=== PATIENT | female | born 1965 | race Caucasian/White ===

== ENCOUNTER 2019-09-10 15:10 | Inpatient (IN) ==
[2019-09-10 16:06] LABS: Basophils # 0.1 10*3/uL (0.0-0.2); Basophils % 0.8 % (0.0-0.8); Eosinophils # 0.3 10*3/uL (0.0-0.87); Eosinophils % 2.9 % (0.00-10.9); Hematocrit 36.2 VOL% (35.7-47.0); Hemoglobin 11.5 GM/DL (12.0-16.0); Immature Granulocytes % 0.2 %; Immature Granulocytes Absolute 0.02 #; Lymphocytes % 33.9 % (21.3-54.2); Mean Corpuscular HGB Conc 31.8 GM/DL (32-36); Mean Corpuscular Volume 94.3 FL (87-102); Mean Platelet Volume 9.9 FL (9.6-12.0); Monocytes % 8.3 % (1.7-12.7); Neutrophils % 53.9 % (38.7-73.9); Platelet Count 361 T/CUMM (130-400); Red Blood Count 3.84 MC/CUMM (3.8-5.5); Red Cell Distribution Width 15.1 % (9.3-17.3); White Blood Count 8.9 T/CUMM (4-12)
[2019-09-10 16:13] LABS: Albumin 3.9 G/DL (3.4-5.0); Bilirubin,Total 0.5 MG/DL (0.2-1.0); Calcium 9.3 MG/DL (8.5-10.1); Total Protein 8.6 G/DL (6.4-8.3)
[2019-09-10] MEDS ORDERED: SODIUM CHLORIDE 0.9% 1,000 ML IV STA (17:05)
[2019-09-10 17:19] LABS: PT Patient Result 11.1 SECS (9.6-12.2); Partial Thromboplastin Time 23.8 SECS (20.8-36.0)
[2019-09-10 17:23] LABS: Amylase 20 U/L (25-115); Troponin I < 0.015 NG/ML (0.00-0.045)
[2019-09-10 18:21] LABS: Apearance,Urine CLEAR (Clear); Barbiturates Screen,Urine Negative (Negative); Benzodiazepines Screen,Urine Negative (Negative); Bilirubin,Urine Negative (Negative); Blood, Urine Negative (Negative); Cannabinoid Screen,Urine Negative (Negative); Glucose,Urine (UA) Negative (Negative); Ketones,Urine Negative (Negative); Nitrite,Urine Negative (Negative); Opiate Screen,Urine Negative (Negative); Phencyclidine Screen,Urine Negative (Negative); Protein,Urine Negative; RBC,Urine 1 /HPF (0-4); Squamous Epithelial Cell,Urine Occasional /HPF (0-10); Urine Color Straw (Yellow); Urine Specific Gravity 1.017 (1.001-1.035); Urine Urobilinogen < 2.0 EU/DL (0.2-1.0); WBC,Urine 1 /HPF (0-6)
[2019-09-10] MEDS ORDERED: MORPHINE 4 MG/1 ML VIAL ONE (18:32)
[2019-09-10] MEDS ORDERED: ONDANSETRON 4 MG/2 ML VIAL ONE ×2 (18:32→18:39)
[2019-09-10] MEDS ORDERED: HYDROmorphone 2 MG/1 ML VIAL IV STA (18:36)
[2019-09-10] MEDS ORDERED: ONDANSETRON 4 MG/2 ML VIAL IV STA (18:37)
[2019-09-10] MEDS ORDERED: MAGNESIUM SULF RIDER 2 GM in PREMIX 1 EACH IV PRN (19:34)
[2019-09-10] MEDS ORDERED: MAGNESIUM SULF RIDER 4 GM in PREMIX 1 EACH IV PRN (19:34)
[2019-09-10] MEDS ORDERED: LABETALOL 20 MG/4 ML SYRINGE IV PRN (19:34)
[2019-09-10 20:16] LABS: Risk Ratio 4.33
[2019-09-10] MEDS: ROSUVASTATIN 20 MG TABLET PO SCH (22:47)
[2019-09-10] MEDS: ENOXAPARIN 100 MG/ML SYRINGE SUBCUT SCH (22:47)
[2019-09-10] MEDS: SODIUM CHLORIDE 0.9% 1,000 ML IV SCH (22:48)
[2019-09-11] MEDS: ONDANSETRON 4 MG/2 ML VIAL IV PRN ×2 (01:04→10:15)
[2019-09-11 02:02] LABS: Basophils # 0.1 10*3/uL (0.0-0.2); Basophils % 0.8 % (0.0-0.8); Eosinophils # 0.4 10*3/uL (0.0-0.87); Eosinophils % 4.2 % (0.00-10.9); Hematocrit 32.3 VOL% (35.7-47.0); Hemoglobin 9.9 GM/DL (12.0-16.0); Immature Granulocytes % 0.5 %; Immature Granulocytes Absolute 0.04 #; Lymphocytes % 34.6 % (21.3-54.2); Mean Corpuscular HGB Conc 30.7 GM/DL (32-36); Mean Corpuscular Volume 96.1 FL (87-102); Monocytes % 12.1 % (1.7-12.7); Neutrophils % 47.8 % (38.7-73.9); Platelet Count 312 T/CUMM (130-400); Red Blood Count 3.36 MC/CUMM (3.8-5.5); Red Cell Distribution Width 15.5 % (9.3-17.3); White Blood Count 8.8 T/CUMM (4-12)
[2019-09-11 02:11] LABS: INR 1.1; PT Patient Result 11.7 SECS (9.6-12.2); Partial Thromboplastin Time 34.9 SECS (20.8-36.0)
[2019-09-11 02:57] LABS: Calcium 8.2 MG/DL (8.5-10.1); Osmolality,Calculated 279.4 MOS/KG (273-304)
[2019-09-11] MEDS: POTASSIUM CHLORIDE 20 MEQ TABLET PO PRN ×4 (05:44→11:53)
[2019-09-11] MEDS ORDERED: INFLUENZA VIRUS VACCINE 0.5 ML SYRINGE IM ONE (07:35)
[2019-09-11] MEDS: HYDROmorphone 2 MG/1 ML VIAL IV PRN ×3 (08:04→21:13)
[2019-09-11] MEDS ORDERED: POTASSIUM CHLORIDE 20 MEQ/15 ML UDCUP PO ONE (08:55)
[2019-09-11] MEDS ORDERED: MAGNESIUM SULF RIDER 2 GM in PREMIX 1 EACH IV ONE (08:55)
[2019-09-11] MEDS: SODIUM CHLORIDE 0.9% 1,000 ML IV SCH ×2 (09:15→14:25)
[2019-09-11] MEDS: ASPIRIN 325 MG TABLET PO SCH (09:17)
[2019-09-11] MEDS: PANTOPRAZOLE 40 MG TABLET PO SCH (09:18)
[2019-09-11] MEDS: APIXABAN 5 MG TABLET PO SCH ×2 (09:29→21:13)
[2019-09-11] MEDS: ENOXAPARIN 100 MG/ML SYRINGE SUBCUT SCH (10:01)
[2019-09-11] MEDS: TOPIRAMATE 200 MG TABLET PO SCH (21:12)
[2019-09-11] MEDS: GABAPENTIN 400 MG CAPSULE PO SCH (21:12)
[2019-09-11] MEDS: QUEtiapine 25 MG TABLET PO SCH (21:12)
[2019-09-11] MEDS: ROSUVASTATIN 20 MG TABLET PO SCH (21:12)
[2019-09-11] MEDS: rOPINIRole 1 MG TABLET PO SCH (21:13)
[2019-09-12] MEDS ORDERED: NALOXONE 0.4 MG/ML VIAL ONE (01:03)
[2019-09-12] MEDS ORDERED: NALOXONE 0.4 MG/ML VIAL IV PRN (01:10)
[2019-09-12 02:22] LABS: Calcium 8.1 MG/DL (8.5-10.1); Osmolality,Calculated 284.4 MOS/KG (273-304)
[2019-09-12 03:21] LABS: Apearance,Urine CLEAR (Clear); Bacteria,Urine Occasional /HPF (Few); Bilirubin,Urine Negative (Negative); Blood, Urine Negative (Negative); Glucose,Urine (UA) 150 mg/dL (Negative); Hyaline Casts,Urine 6 /LPF (0-3); Ketones,Urine Negative (Negative); Mucus,Urine Occasional /LPF (Occasional); Nitrite,Urine Negative (Negative); Protein,Urine Negative; RBC,Urine 4 /HPF (0-4); Squamous Epithelial Cell,Urine Occasional /HPF (0-10); Urine Color Yellow (Yellow); Urine Specific Gravity 1.013 (1.001-1.035); WBC,Urine 1 /HPF (0-6)
[2019-09-12 03:22] LABS: Barbiturates Screen,Urine Negative (Negative); Benzodiazepines Screen,Urine Negative (Negative); Cannabinoid Screen,Urine Negative (Negative); Opiate Screen,Urine Positive (Negative); Phencyclidine Screen,Urine Negative (Negative)
[2019-09-12] MEDS: LEVOTHYROXINE 75 MCG TABLET PO SCH (06:00)
[2019-09-12] MEDS ORDERED: LEVOTHYROXINE 25 MCG TABLET PO SCH (06:30)
[2019-09-12] MEDS: ONDANSETRON 4 MG/2 ML VIAL IV PRN ×3 (07:52→21:15)
[2019-09-12] MEDS: POTASSIUM CHLORIDE 10 MEQ TABLET PO SCH (08:45)
[2019-09-12] MEDS: ESCITALOPRAM 10 MG TABLET PO SCH (08:45)
[2019-09-12] MEDS: ASPIRIN 325 MG TABLET PO SCH (08:45)
[2019-09-12] MEDS: CHOLECALCIFEROL 1,000 UNIT TABLET PO SCH (08:45)
[2019-09-12] MEDS: GABAPENTIN 400 MG CAPSULE PO SCH ×3 (08:46→21:15)
[2019-09-12] MEDS: APIXABAN 5 MG TABLET PO SCH ×2 (08:46→21:15)
[2019-09-12] MEDS: PANTOPRAZOLE 40 MG TABLET PO SCH (08:46)
[2019-09-12] MEDS: ROSUVASTATIN 10 MG TABLET PO SCH (21:14)
[2019-09-12] MEDS: QUEtiapine 25 MG TABLET PO SCH (21:14)
[2019-09-12] MEDS: rOPINIRole 1 MG TABLET PO SCH (21:14)
[2019-09-12] MEDS: TOPIRAMATE 200 MG TABLET PO SCH (21:15)
[2019-09-12] MEDS: LINACLOTIDE 145 MCG CAPSULE PO PRN (21:24)
[2019-09-13] MEDS: LEVOTHYROXINE 75 MCG TABLET PO SCH (06:47)
[2019-09-13] MEDS: PANTOPRAZOLE 40 MG TABLET PO SCH (08:52)
[2019-09-13] MEDS: CHOLECALCIFEROL 1,000 UNIT TABLET PO SCH (09:06)
[2019-09-13] MEDS: APIXABAN 5 MG TABLET PO SCH ×2 (09:06→21:34)
[2019-09-13] MEDS: ASPIRIN CHEW 81 MG TABLET PO SCH (09:07)
[2019-09-13] MEDS: POTASSIUM CHLORIDE 10 MEQ TABLET PO SCH (09:07)
[2019-09-13] MEDS: ESCITALOPRAM 10 MG TABLET PO SCH (09:07)
[2019-09-13] MEDS: GABAPENTIN 400 MG CAPSULE PO SCH ×3 (09:13→21:34)
[2019-09-13] MEDS: oxyCODONE/ACETAMINOPHEN 5-325 MG TABLET PO PRN (15:22)
[2019-09-13] MEDS: ROSUVASTATIN 10 MG TABLET PO SCH (21:34)
[2019-09-13] MEDS: TOPIRAMATE 200 MG TABLET PO SCH (21:34)
[2019-09-13] MEDS: rOPINIRole 1 MG TABLET PO SCH (21:35)
[2019-09-13] MEDS: QUEtiapine 25 MG TABLET PO SCH (21:35)
[2019-09-14 04:53] LABS: Basophils # 0.1 10*3/uL (0.0-0.2); Basophils % 0.9 % (0.0-0.8); Eosinophils # 0.4 10*3/uL (0.0-0.87); Eosinophils % 4.9 % (0.00-10.9); Hematocrit 25.2 VOL% (35.7-47.0); Hemoglobin 8.1 GM/DL (12.0-16.0); Immature Granulocytes % 0.2 %; Immature Granulocytes Absolute 0.02 #; Lymphocytes # 3.3 10*3/uL (1.4-4.0); Lymphocytes % 40.1 % (21.3-54.2); Mean Corpuscular HGB Conc 32.1 GM/DL (32-36); Mean Corpuscular Volume 94.7 FL (87-102); Mean Platelet Volume 10.3 FL (9.6-12.0); Monocytes % 8.6 % (1.7-12.7); Neutrophils % 45.3 % (38.7-73.9); Platelet Count 394 T/CUMM (130-400); Red Blood Count 2.66 MC/CUMM (3.8-5.5); White Blood Count 8.2 T/CUMM (4-12)
[2019-09-14 05:11] LABS: Calcium 8.4 MG/DL (8.5-10.1); Osmolality,Calculated 282.1 MOS/KG (273-304)
[2019-09-14] MEDS: LEVOTHYROXINE 75 MCG TABLET PO SCH (05:57)
[2019-09-14] MEDS: POTASSIUM CHLORIDE 20 MEQ TABLET PO PRN ×2 (05:57→09:53)
[2019-09-14 08:47] LABS: Atypical Lymphocytes Few; Band Neutrophils 1 % (0-10); Eosinophils 4 % (0-10); Giant Platelets Few; Lymphocytes 33 % (20-55); Platelet Estimate Normal; Polychromasia Slight; Segmented Neutrophils 56 % (50-85); Total Cells Counted 100
[2019-09-14] MEDS: APIXABAN 5 MG TABLET PO SCH ×2 (09:54→21:50)
[2019-09-14] MEDS: GABAPENTIN 400 MG CAPSULE PO SCH ×3 (09:54→21:50)
[2019-09-14] MEDS: ASPIRIN CHEW 81 MG TABLET PO SCH (09:54)
[2019-09-14] MEDS: ESCITALOPRAM 10 MG TABLET PO SCH (09:54)
[2019-09-14] MEDS: POTASSIUM CHLORIDE 10 MEQ TABLET PO SCH (09:54)
[2019-09-14] MEDS: CHOLECALCIFEROL 1,000 UNIT TABLET PO SCH (09:54)
[2019-09-14] MEDS: PANTOPRAZOLE 40 MG TABLET PO SCH (09:54)
[2019-09-14] MEDS: oxyCODONE/ACETAMINOPHEN 5-325 MG TABLET PO PRN ×2 (09:58→21:55)
[2019-09-14] MEDS: ONDANSETRON 4 MG/2 ML VIAL IV PRN ×2 (10:03→16:57)
[2019-09-14] MEDS ORDERED: POTASSIUM CHLORIDE 20 MEQ/15 ML UDCUP PO ONE (11:04)
[2019-09-14] MEDS ORDERED: SODIUM CHLORIDE 0.9% 1,000 ML IV PRN (11:05)
[2019-09-14] MEDS: ROSUVASTATIN 10 MG TABLET PO SCH (21:49)
[2019-09-14] MEDS: QUEtiapine 25 MG TABLET PO SCH (21:49)
[2019-09-14] MEDS: TOPIRAMATE 200 MG TABLET PO SCH (21:49)
[2019-09-14] MEDS: rOPINIRole 1 MG TABLET PO SCH (21:49)
[2019-09-14 23:50] LABS: Hematocrit 33.2 VOL% (35.7-47.0); Hemoglobin 10.6 GM/DL (12.0-16.0)
[2019-09-15] MEDS: oxyCODONE/ACETAMINOPHEN 5-325 MG TABLET PO PRN ×3 (05:54→21:37)
[2019-09-15] MEDS: LEVOTHYROXINE 75 MCG TABLET PO SCH (05:55)
[2019-09-15 06:36] LABS: Basophils # 0.1 10*3/uL (0.0-0.2); Basophils % 0.9 % (0.0-0.8); Eosinophils # 0.8 10*3/uL (0.0-0.87); Eosinophils % 5.9 % (0.00-10.9); Hematocrit 34.5 VOL% (35.7-47.0); Hemoglobin 11.1 GM/DL (12.0-16.0); Immature Granulocytes % 0.4 %; Immature Granulocytes Absolute 0.06 #; Lymphocytes # 3.5 10*3/uL (1.4-4.0); Lymphocytes % 25.6 % (21.3-54.2); Mean Corpuscular HGB Conc 32.2 GM/DL (32-36); Mean Corpuscular Volume 92.5 FL (87-102); Mean Platelet Volume 9.8 FL (9.6-12.0); Monocytes % 6.4 % (1.7-12.7); Neutrophils % 60.8 % (38.7-73.9); Platelet Count 415 T/CUMM (130-400); Red Blood Count 3.73 MC/CUMM (3.8-5.5); Red Cell Distribution Width 16.5 % (9.3-17.3); White Blood Count 13.7 T/CUMM (4-12)
[2019-09-15 06:52] LABS: Calcium 9.4 MG/DL (8.5-10.1); Osmolality,Calculated 281.1 MOS/KG (273-304)
[2019-09-15] MEDS: GABAPENTIN 400 MG CAPSULE PO SCH ×3 (09:05→20:40)
[2019-09-15] MEDS: APIXABAN 5 MG TABLET PO SCH ×2 (09:05→20:40)
[2019-09-15] MEDS: POTASSIUM CHLORIDE 10 MEQ TABLET PO SCH (09:05)
[2019-09-15] MEDS: ESCITALOPRAM 10 MG TABLET PO SCH (09:05)
[2019-09-15] MEDS: ASPIRIN CHEW 81 MG TABLET PO SCH (09:05)
[2019-09-15] MEDS: PANTOPRAZOLE 40 MG TABLET PO SCH (09:05)
[2019-09-15] MEDS: CHOLECALCIFEROL 1,000 UNIT TABLET PO SCH (09:06)
[2019-09-15] MEDS ORDERED: guaiFENesin 200 MG/10 ML UDCUP PO PRN (09:13)
[2019-09-15 10:15] LABS: Atypical Lymphocytes Few; Band Neutrophils 1 % (0-10); Eosinophils 7 % (0-10); Lymphocytes 25 % (20-55); Ovalocytes Few; Platelet Estimate Increased; Segmented Neutrophils 62 % (50-85); Total Cells Counted 100
[2019-09-15] MEDS: ONDANSETRON 4 MG/2 ML VIAL IV PRN (11:06)
[2019-09-15] MEDS: ALBUTEROL/IPRATROPIUM 3 ML NEB RESP TX SCH ×2 (12:30→19:52)
[2019-09-15 13:06] LABS: Apearance,Urine CLEAR (Clear); Bacteria,Urine Occasional /HPF (Few); Bilirubin,Urine Negative (Negative); Blood, Urine Small mg/dL (Negative); Glucose,Urine (UA) Negative (Negative); Ketones,Urine Negative (Negative); Nitrite,Urine Negative (Negative); Protein,Urine Negative; RBC,Urine 1 /HPF (0-4); Squamous Epithelial Cell,Urine Occasional /HPF (0-10); Urine Color Straw (Yellow); Urine Specific Gravity 1.008 (1.001-1.035); Urine Urobilinogen < 2.0 EU/DL (0.2-1.0); WBC,Urine 2 /HPF (0-6)
[2019-09-15] MEDS: QUEtiapine 25 MG TABLET PO SCH (20:40)
[2019-09-15] MEDS: rOPINIRole 1 MG TABLET PO SCH (20:40)
[2019-09-15] MEDS: TOPIRAMATE 200 MG TABLET PO SCH (20:40)
[2019-09-15] MEDS: ROSUVASTATIN 10 MG TABLET PO SCH (20:40)
[2019-09-16] MEDS: ALBUTEROL/IPRATROPIUM 3 ML NEB RESP TX SCH ×4 (01:42→19:22)
[2019-09-16] MEDS: ONDANSETRON 4 MG/2 ML VIAL IV PRN (05:14)
[2019-09-16] MEDS: LEVOTHYROXINE 75 MCG TABLET PO SCH (06:22)
[2019-09-16] MEDS: GABAPENTIN 400 MG CAPSULE PO SCH ×3 (08:44→20:02)
[2019-09-16] MEDS: APIXABAN 5 MG TABLET PO SCH ×2 (08:45→20:01)
[2019-09-16] MEDS: ASPIRIN CHEW 81 MG TABLET PO SCH (08:45)
[2019-09-16] MEDS: ESCITALOPRAM 10 MG TABLET PO SCH (08:46)
[2019-09-16] MEDS: CHOLECALCIFEROL 1,000 UNIT TABLET PO SCH (08:46)
[2019-09-16] MEDS: PANTOPRAZOLE 40 MG TABLET PO SCH (08:46)
[2019-09-16] MEDS: POTASSIUM CHLORIDE 10 MEQ TABLET PO SCH (08:52)
[2019-09-16] MEDS: oxyCODONE/ACETAMINOPHEN 5-325 MG TABLET PO PRN ×2 (08:52→20:01)
[2019-09-16 09:20] LABS: Basophils # 0.1 10*3/uL (0.0-0.2); Basophils % 1.4 % (0.0-0.8); Eosinophils # 0.8 10*3/uL (0.0-0.87); Eosinophils % 8.1 % (0.00-10.9); Hematocrit 34.6 VOL% (35.7-47.0); Hemoglobin 11.3 GM/DL (12.0-16.0); Immature Granulocytes % 0.2 %; Immature Granulocytes Absolute 0.02 #; Lymphocytes # 3.5 10*3/uL (1.4-4.0); Mean Corpuscular HGB Conc 32.7 GM/DL (32-36); Mean Corpuscular Volume 91.1 FL (87-102); Mean Platelet Volume 9.8 FL (9.6-12.0); Monocytes % 8.7 % (1.7-12.7); Neutrophils % 44.6 % (38.7-73.9); Platelet Count 503 T/CUMM (130-400); Red Cell Distribution Width 16.5 % (9.3-17.3); White Blood Count 9.4 T/CUMM (4-12)
[2019-09-16 09:38] LABS: Osmolality,Calculated 279.4 MOS/KG (273-304)
[2019-09-16 09:41] LABS: Eosinophils 10 % (0-10); Lymphocytes 25 % (20-55); Segmented Neutrophils 57 % (50-85); Total Cells Counted 100
[2019-09-16 09:42] LABS: Hypochromasia 1+; Platelet Estimate Adequate
[2019-09-16 09:43] LABS: Atypical Lymphocytes Few
[2019-09-16] MEDS: TOPIRAMATE 200 MG TABLET PO SCH (20:01)
[2019-09-16] MEDS: ROSUVASTATIN 10 MG TABLET PO SCH (20:01)
[2019-09-16] MEDS: rOPINIRole 1 MG TABLET PO SCH (20:02)
[2019-09-16] MEDS: QUEtiapine 25 MG TABLET PO SCH (20:02)
[2019-09-17] MEDS: ALBUTEROL/IPRATROPIUM 3 ML NEB RESP TX SCH ×2 (01:00→07:06)
[2019-09-17] MEDS: ONDANSETRON 4 MG/2 ML VIAL IV PRN (03:12)
[2019-09-17] MEDS: LEVOTHYROXINE 75 MCG TABLET PO SCH (07:24)
[2019-09-17 07:55] VITALS: BP 91/72
[2019-09-17] MEDS: CHOLECALCIFEROL 1,000 UNIT TABLET PO SCH (08:22)
[2019-09-17] MEDS: POTASSIUM CHLORIDE 10 MEQ TABLET PO SCH (08:22)
[2019-09-17] MEDS: ASPIRIN CHEW 81 MG TABLET PO SCH (08:22)
[2019-09-17] MEDS: GABAPENTIN 400 MG CAPSULE PO SCH (08:22)
[2019-09-17] MEDS: APIXABAN 5 MG TABLET PO SCH (08:22)
[2019-09-17] MEDS: ESCITALOPRAM 10 MG TABLET PO SCH (08:23)
[2019-09-17] MEDS: PANTOPRAZOLE 40 MG TABLET PO SCH (08:23)
[2019-09-17] MEDS: LINACLOTIDE 145 MCG CAPSULE PO PRN (08:40)
[2019-09-18] MEDS ORDERED: APIXABAN 5 MG TABLET PO SCH (21:00)
== END 2019-09-17 11:20 | disposition home health service (06) | DRG 175 ==
LOC: N.ED 15:10 → N.EDINP 20:16 → SUPCPDRO 20:16 → N.4E 20:33 → N.CC 09-12 01:45 → N.4E 09-12 18:17
PROVIDERS: ADMIT Internal Medicine; ATTEND Internal Medicine